=== PATIENT | male | born 1990 | race Caucasian/White ===

== ENCOUNTER 2018-08-23 16:28 | Emergency (ER) | payer SELFPAY ==
[2014-05-11 08:27] VITALS: Wt 77.1 kg
[2018-08-23] MEDS ORDERED: EPINEPHrine 0.3 MG SYR IM ONLY ONE ×2 (16:37→16:40)
[2018-08-23] MEDS ORDERED: FAMOTIDINE(*) 20MG/50ML PREMIX 50 ML IVPB ONE (16:40)
[2018-08-23] MEDS ORDERED: HYDROCORTISONE 100 MG/2 ML IVP ONE (16:40)
[2018-08-23] MEDS ORDERED: diphenhydrAMINE 50 MG/ML VIAL IVP ONE (16:40)
[2018-08-23] MEDS ORDERED: NS(*) 0.9% 1000 ML BAG 1,000 ML IV ONE (16:45)
[2018-08-23] MEDS ORDERED: PRED20TA6 PO (17:37)
[2018-08-23] MEDS ORDERED: EPIN0.3P15 IM (17:37)
--- NOTE | 2018-08-23 17:56 | ER Report ---
History and Physical Time Seen By MD: 17:29 Hx. of Stated Complaint: Pt. came to the ED with allergic reaction one hour after drinking a smoothie. Hives and redness. Wheezing on arrival. Allergic to halibut and possibly kiwi. HPI/ROS CHIEF COMPLAINT: Anaphylactic reaction HISTORY OF PRESENT ILLNESS: Patient is a 28-year-old male here with complaints of shortness breath, facial swelling, bilateral lung wheezing, oropharyngeal swe lling and rash after being exposed to a fruit smoothy approximately 45 minutes to an hour prior to arrival. 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 Patient did not have EpiPen prescription for administration patient setting and did not take other medications prior to arrival. Patient was becoming progressively more hypotensive and hypoxic prior to administration of EpiPen, anaphylaxis kit. REVIEW OF SYSTEMS: Constitutional: No fever, no chills. Eyes: No discharge. ENT: + oropharyngeal and facial swelling, + mild stridor Cardiovascular: No chest pain, no palpitations. Respiratory: No cough, + wheezing, + significant shortness of breath. Gastrointestinal: No abdominal pain, no vomiting. Genitourinary: No hematuria. Musculoskeletal: No back pain. Skin: + diffuse erythematous rash Neurological: No headache. Allergies: Uncoded Allergies: environmental allergies (Adverse Reaction, Mild, asthma, 05/10/14) Home Meds Active Scripts Prednisone (PREDNISONE) 20 Mg Tablet, 40 MG PO QDAY for 4 Days, #8 TAB Prov:FERNY REES S DO 08/23/18 Epinephrine (EPIPEN 2-CUCO) 0.3 Mg/0.3 Ml Pen.injctr, 0.3 MG IM PRN PRN for ANAPHYLAXIS, #2 PEN Prov:FERNY REES S DO 08/23/18 Hx Smoking: Yes Smoking Status: Current: Every Day Smoker Hx Substance Use Disorder: Yes (multiple) Hx Alcohol Use: Yes Constitutional Vital Sign - Last 24 Hours 08/23/18 08/23/18 08/23/18 08/23/18 16:28 16:31 16:32 16:33 Temp 98.9 Pulse ??? 105 108 Resp 20 7 B/P (MAP) 96/58 (71) 96/58 Pulse Ox 91 O2 Delivery Nasal Cannula 08/23/18 08/23/18 08/23/1808/23/18 16:38 16:40 16:43 16:45 Pulse 133 101 Resp 54 10 B/P (MAP) 144/118 (127) 151/96 (114) Pulse Ox 96 99 08/23/18 08/23/18 08/23/18 08/23/18 16:48 16:50 16:53 16:58 Pulse 94 92 91 Resp 15 16 14 B/P (MAP) 132/97 (109) Pulse Ox 96 96 94 08/23/18 08/23/18 08/23/18 08/23/18 17:00 17:08 17:10 17:13 Pulse 87 85 Resp 15 14 B/P (MAP) 141/98 (112) 120/74 (89) Pulse Ox 93 94 08/23/18 08/23/18 08/23/18 08/23/18 17:18 17:20 17:23 17:28 Pulse 86 82 83 Resp 13 13 B/P (MAP) 114/80 (91) Pulse Ox 93 91 08/23/18 08/23/18 08/23/18 08/23/18 17:30 17:33 17:38 17:40 Pulse 81 83 Resp 13 9 B/P (MAP) 114/75 (88) 112/72 (85) Pulse Ox 91 91 08/23/18 08/23/18 08/23/18 08/23/18 17:43 17:48 17:50 18:00 Pulse 80 81 Resp 11 12 B/P (MAP) 100/72 (81) 93/69 (77) Pulse Ox 92 91 08/23/18 08/23/18 08/23/18 08/23/18 18:03 18:10 18:18 18:20 Pulse 84 78 Resp 7 8 B/P (MAP) 103/68 (80) 104/70 (81) Pulse Ox 97 94 08/23/18 08/23/18 08/23/18 08/23/18 18:30 18:33 18:40 18:48 Pulse 75 71 Resp 12 9 B/P (MAP) 102/73 (83) 112/73 (86) Pulse Ox 95 93 08/23/18 08/23/18 08/23/18 08/23/18 18:50 19:00 19:03 19:10 Pulse 69 Resp 12 B/P (MAP) 108/77 (87) 112/79 (90) 111/74 (86) Pulse Ox 92 08/23/18 08/23/18 19:16 19:19 Pulse 85 ??? Resp 16 B/P (MAP) 132/85 (101) Pulse Ox 96 O2 Delivery Room Air Physical Exam General Appearance: The patient is alert, has no immediate need for airway protection and no signs of toxicity. Moderate respiratory distress Eyes: Pupils equal and round no pallor or injection. ENT, Mouth: + significant oropharyngeal and facial swelling with mild stridor and diffuse wheezing Respiratory: + diffuse wheezing and moderate respiratory distress Cardiovascular: Regular rate and rhythm. Gastrointestinal: Abdomen is soft and non tender, no masses, bowel sounds normal. Neurological: No focal neuro deficits Skin: + Diffuse erythematous rash Musculoskeletal: Neck is supple non tender. Extremities are nontender, nonswollen and have full range of motion. DIFFERENTIAL DIAGNOSIS: After history and physical exam differential diagnosis was considered for environmental, food anaphylactic reaction to unknown substance Medical Decision Making ED Course/Re-evaluation Clinical Indication for ER IV: Hydration, Hypotention, IV Access ED Course Patient is a 28-year-old male here with an anaphylactic reaction to an unknown substance. Patient reportedly had a fruit smoothy approximately one hour prior to onset of symptoms. 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 After being exposed for smoothy, patient developed wheezing, respiratory distress, facial swelling, oropharyngeal swelling and rash. Patient did not have a prescription for EpiPen's and has never had this severe reaction. Patient was administered intramuscular epinephrine pen, diphenhydramine 50 mg, famotidine, Solu-Medrol and an IV fluid bolus of 1 L normal saline for symptom management. Patient responded well to treatment modalities. Patient remained hemodynamically stable after treatment however was initially hypotensive, progressively more hypoxic. Scripts for EpiPen and several days of prednisone were ordered prior to transfer of care to Dr. Banks who would watch the patient for the next hour or so. Plan was to discharge patient as long as he remained hemodynamically stable and asymptomatic. I updated the patient regarding the plan prior to end of shift. Patient voiced understanding of plan and agreed to return promptly if he develops recurrent symptoms or respiratory distress or facial swelling or rash. Is advised to follow-up with his PCP with consideration for allergenist for evaluation of allergies since the patient was unclear what he is allergic to. Patient agreed with plan. Decision to Disposition Date: Aug 23, 2018 Decision to Disposition Time: 19:20 Depart Departure Latest Vital Signs Vital Signs Date Time Temp Pulse Resp B/P (MAP) Pulse Ox O2 Delivery O2 Flow Rate FiO2 08/23/18 19:19 ??? 08/23/18 19:16 16 132/85 (101) 96 Room Air 08/23/18 16:32 98.9 Impression: Primary Impression: ANAPHYLACTIC REACTION DUE TO UNSPECIFIED FOOD, INIT ENCNTR Additional Impressions: SHORTNESS OF BREATH Facial swelling Condition: Improved Disposition: HOME OR SELF-CARE New Scripts Prednisone (PREDNISONE) 20 Mg Tablet 40 MG PO QDAY for 4 Days, #8 TAB Prov: FERNY REES DO 08/23/18 Epinephrine (EPIPEN 2-CUCO) 0.3 Mg/0.3 Ml Pen.injctr 0.3 MG IM PRN PRN for ANAPHYLAXIS, #2 PEN Prov: FERNY REES DO 08/23/18 Patient Instructions: Anaphylaxis (ED), Epinephrine (By injection), Prednisone (By mouth) Additional Instructions: You were found to have a severe allergic reaction today to an unknown substance. Your given prescriptions for epinephrine auto injector pens, prednisone. For the next 4 days, please take 40 mg of prednisone daily for prevention of recurrence of allergic reaction. Please take note of different types of food that you decide to eat and avoid foods that may have precipitated your current symptoms. Please administer your EpiPen into your thigh if you develop facial swelling, difficulty breathing, difficulty swallowing. If you develop recurrent symptoms, please call [phone] proceed emergently to an emergency department for further evaluation as epinephrine does not always fix anaphylaxis. You may consider following up with an allergy doctor for further evaluation of what caused your symptoms. Problem Qualifiers FERNY REES DO Aug 23, 2018 17:56
[2018-08-23 19:16] VITALS: BP 132/85
== END 2018-08-23 19:20 | disposition home or self-care (01) ==
LOC: ER 16:47
DX: T78.04XA Anaphylactic reaction due to fruits and vegetables, initial encounter (principal); R06.02 Shortness of breath; M79.89 Other specified soft tissue disorders
CPT/HCPCS: 96361; 96365; 96372; 96375; 99284; J0171; J1200; J1720; J3490; J7030